=== PATIENT | female | born 1990 | race Caucasian/White ===

== ENCOUNTER 2018-01-28 06:06 | Observation (INO) ==
[~2018-01-28 06:06] MED LIST: ceFAZolin 1,000 MG VIAL ONE; ceFAZolin 1,000 MG in SYRINGE 1 EACH IV ONE
[2018-01-28] MEDS ORDERED: LACTATED RINGERS 1,000 ML IV SCH ×2 (07:00→10:30)
[2018-01-28] MEDS ORDERED: LIDOCAINE 1%/EPI INJ 20 ML VIAL ONE (07:49)
[2018-01-28] MEDS ORDERED: BUPIVACAINE MPF 0.25% /EPI 30 ML VIAL ONE (07:49)
[2018-01-28] MEDS ORDERED: TISSUE ADHESIVE 1 EACH APPLICATOR TOP ONE (09:32)
[2018-01-28 10:20] LABS: Apearance,Urine CLEAR (Clear); Bacteria,Urine Occasional /HPF (Few); Bilirubin,Urine Negative (Negative); Blood, Urine Negative (Negative); Glucose,Urine (UA) Negative (Negative); Ketones,Urine Negative (Negative); Mucus,Urine Occasional /LPF (Occasional); Nitrite,Urine Negative (Negative); Protein,Urine Negative; RBC,Urine 1 /HPF (0-4); Squamous Epithelial Cell,Urine Occasional /HPF (0-10); Urine Color Yellow (Yellow); Urine Specific Gravity 1.014 (1.001-1.035); Urine Urobilinogen < 2.0 EU/DL (0.2-1.0)
[2018-01-28] MEDS ORDERED: PROPOFOL 200 MG/20 ML VIAL IV ONE (10:21)
[2018-01-28] MEDS ORDERED: ACETAMINOPHEN 1,000 MG/100 ML VIAL IV ONE (10:22)
[2018-01-28] MEDS ORDERED: ROCURONIUM 100 MG/10 ML VIAL IV ONE (10:22)
[2018-01-28] MEDS ORDERED: SCOPOLAMINE 1.5 MG PATCH TRANSDERM ONE (10:22)
[2018-01-28] MEDS ORDERED: MIDAZOLAM 2 MG/2 ML VIAL ONE (10:22)
[2018-01-28] MEDS ORDERED: fentaNYL 100 MCG/2 ML VIAL ONE ×2 (10:22)
[2018-01-28] MEDS ORDERED: GLYCOPYRROLATE 0.4 MG/2 ML VIAL ONE (10:23)
[2018-01-28] MEDS ORDERED: NEOSTIGMINE 10 MG/10 ML VIAL ONE (10:23)
[2018-01-28] MEDS ORDERED: PHENYLEPHRINE 1 MG/10 ML SYRINGE IV ONE (10:23)
[2018-01-28] MEDS ORDERED: SEVOFLURANE 1 UNIT/15 MINUTE INH ONE (10:24)
[2018-01-28] MEDS ORDERED: ONDANSETRON 4 MG/2 ML VIAL ONE ×2 (10:24→10:33)
[2018-01-28] MEDS ORDERED: SODIUM CHLORIDE 0.9% 1,000 ML IV ONE (10:24)
[2018-01-28] MEDS ORDERED: LACTATED RINGERS 1,000 ML IV ONE (10:24)
[2018-01-28] MEDS ORDERED: DEXAMETHASONE 10 MG/1 ML VIAL ONE (10:24)
[2018-01-28] MEDS ORDERED: HYDROmorphone 2 MG/1 ML VIAL IV PRN (10:27)
[2018-01-28] MEDS ORDERED: ONDANSETRON 4 MG/2 ML VIAL IV PRN ×2 (10:27→11:14)
[2018-01-28] MEDS ORDERED: MORPHINE 10 MG/1 ML VIAL ONE (10:33)
[2018-01-28] MEDS: MORPHINE 10 MG/1 ML VIAL IV PRN ×3 (10:38→10:51)
[2018-01-28] MEDS ORDERED: MORPHINE 4 MG/1 ML VIAL IV PRN (11:14)
[2018-01-28] MEDS ORDERED: PROMETHAZINE 25 MG/1 ML VIAL IM PRN (11:14)
[2018-01-28] MEDS: PANTOPRAZOLE 40 MG VIAL IV SCH (11:28)
[2018-01-28] MEDS: KETOROLAC 30 MG/1 ML VIAL IV SCH ×3 (11:29→23:14)
[2018-01-28 11:43] LABS: Basophils % 0.1 % (0.0-0.8); Hematocrit 26.2 VOL% (35.7-47.0); Hemoglobin 8.9 GM/DL (12.0-16.0); Immature Granulocytes % 0.5 %; Immature Granulocytes Absolute 0.05 #; Lymphocytes # 0.4 10*3/uL (1.4-4.0); Lymphocytes % 3.7 % (21.3-54.2); Mean Corpuscular Hemoglobin 28 PG (27-34); Mean Corpuscular Volume 82.4 FL (87-102); Mean Platelet Volume 9.3 FL (9.6-12.0); Monocytes # 0.1 10*3/uL (0.11-0.8); Monocytes % 0.7 % (1.7-12.7); Neutrophils # 9.3 10*3/uL (1.4-7.4); Platelet Count 227 T/CUMM (130-400); Red Blood Count 3.18 MC/CUMM (3.8-5.5); Red Cell Distribution Width 12.9 % (9.3-17.3); White Blood Count 9.8 T/CUMM (4-12)
[2018-01-28 12:02] LABS: Band Neutrophils 5 % (0-10); Lymphocytes 2 % (20-55); Microcytosis 1+; Segmented Neutrophils 92 % (50-85); Total Cells Counted 100
[2018-01-28 12:03] LABS: Hypochromasia 1+
[2018-01-28 12:17] LABS: Calcium 6.8 MG/DL (8.5-10.1); Osmolality,Calculated 271.5 MOS/KG (273-304)
[2018-01-28] MEDS: LACTATED RINGERS 1,000 ML IV SCH ×2 (15:03→23:14)
[2018-01-29] MEDS: KETOROLAC 30 MG/1 ML VIAL IV SCH ×3 (05:22→17:03)
[2018-01-29 05:47] LABS: Eosinophils % 0.1 % (0.00-10.9); Hematocrit 28.4 VOL% (35.7-47.0); Hemoglobin 9.6 GM/DL (12.0-16.0); Immature Granulocytes % 0.4 %; Immature Granulocytes Absolute 0.04 #; Lymphocytes # 1.4 10*3/uL (1.4-4.0); Lymphocytes % 14.3 % (21.3-54.2); Mean Corpuscular HGB Conc 33.8 GM/DL (32-36); Mean Corpuscular Hemoglobin 28 PG (27-34); Mean Corpuscular Volume 81.6 FL (87-102); Mean Platelet Volume 9.9 FL (9.6-12.0); Monocytes % 10.6 % (1.7-12.7); Neutrophils # 7.2 10*3/uL (1.4-7.4); Neutrophils % 74.6 % (38.7-73.9); Platelet Count 293 T/CUMM (130-400); Red Blood Count 3.48 MC/CUMM (3.8-5.5); Red Cell Distribution Width 13.2 % (9.3-17.3); White Blood Count 9.6 T/CUMM (4-12)
[2018-01-29] MEDS: LACTATED RINGERS 1,000 ML IV SCH (07:56)
[2018-01-29] MEDS ORDERED: NORETHINDRONE ETHINYL ESTRAD PO SCH (09:00)
[2018-01-29] MEDS: SERTRALINE 50 MG TABLET PO SCH (09:22)
[2018-01-29] MEDS: PANTOPRAZOLE 40 MG VIAL IV SCH (09:23)
[2018-01-29] MEDS: ENOXAPARIN 40 MG/0.4 ML SYRINGE SUBCUT SCH (09:25)
[2018-01-30] MEDS: KETOROLAC 30 MG/1 ML VIAL IV SCH ×3 (00:02→11:43)
[2018-01-30] MEDS: ENOXAPARIN 40 MG/0.4 ML SYRINGE SUBCUT SCH (09:18)
[2018-01-30] MEDS: SERTRALINE 50 MG TABLET PO SCH (09:19)
[2018-01-30] MEDS: PANTOPRAZOLE 40 MG VIAL IV SCH (09:21)
[2018-01-30 11:59] VITALS: BP 118/76
== END 2018-01-30 12:45 | disposition home or self-care (01) ==
LOC: N.OR 06:06 → N.2E 06:06 → N.SDSINP 06:09 → N.2E 11:14
PROVIDERS: ADMIT Surgery; ATTEND Surgery

== ENCOUNTER 2018-02-06 13:45 | Inpatient (IN) ==
[2018-02-06] MEDS ORDERED: MORPHINE 4 MG/1 ML VIAL IV PRN (14:00)
[2018-02-06] MEDS ORDERED: PROMETHAZINE 25 MG/1 ML VIAL IM PRN (14:00)
[2018-02-06] MEDS ORDERED: ONDANSETRON 4 MG/2 ML VIAL IV PRN (14:00)
[2018-02-06] MEDS ORDERED: ASPIRIN 325 MG TABLET PO SCH (14:58)
[2018-02-06] MEDS ORDERED: cefTRIAXone 2,000 MG in SYRINGE 1 EACH IV ONE (15:30)
[2018-02-06] MEDS ORDERED: VANCOMYCIN INJ 1,250 MG in SODIUM CHLORIDE 0.9% 250 ML IV ONE (16:00)
[2018-02-06] MEDS: LACTATED RINGERS 1,000 ML IV SCH (19:12)
[2018-02-06] MEDS: ASPIRIN 325 MG TABLET PO SCH (19:12)
[2018-02-06] MEDS: cefTRIAXone 2,000 MG in SYRINGE 1 EACH IV SCH ×2 (20:03→20:04)
[2018-02-06] MEDS: diphenhydrAMINE 50 MG/1 ML VIAL IV PRN (20:41)
[2018-02-06] MEDS ORDERED: ENOXAPARIN 40 MG/0.4 ML SYRINGE SUBCUT SCH (21:00)
[2018-02-07] MEDS: LACTATED RINGERS 1,000 ML IV SCH ×3 (01:11→15:21)
[2018-02-07] MEDS: VANCOMYCIN INJ 1,250 MG in SODIUM CHLORIDE 0.9% 250 ML IV SCH ×2 (01:51→08:59)
[2018-02-07] MEDS: diphenhydrAMINE 50 MG/1 ML VIAL IV PRN ×2 (01:53→08:59)
[2018-02-07] MEDS: cefTRIAXone 2,000 MG in SYRINGE 1 EACH IV SCH ×2 (03:21→15:22)
[2018-02-07 06:58] LABS: Basophils # 0.1 10*3/uL (0.0-0.2); Basophils % 1.1 % (0.0-0.8); Eosinophils # 0.2 10*3/uL (0.0-0.87); Eosinophils % 3.2 % (0.00-10.9); Hemoglobin 9.5 GM/DL (12.0-16.0); Immature Granulocytes % 0.5 %; Immature Granulocytes Absolute 0.03 #; Lymphocytes # 1.2 10*3/uL (1.4-4.0); Lymphocytes % 21.7 % (21.3-54.2); Mean Corpuscular HGB Conc 32.8 GM/DL (32-36); Mean Corpuscular Hemoglobin 27 PG (27-34); Mean Corpuscular Volume 82.2 FL (87-102); Mean Platelet Volume 8.6 FL (9.6-12.0); Monocytes # 0.9 10*3/uL (0.11-0.8); Monocytes % 16.5 % (1.7-12.7); NRBC # 0.03 10*3/uL; Neutrophils # 3.2 10*3/uL (1.4-7.4); Red Blood Count 3.53 MC/CUMM (3.8-5.5); Red Cell Distribution Width 13.1 % (9.3-17.3); White Blood Count 5.7 T/CUMM (4-12)
[2018-02-07 07:03] LABS: Platelet Count 1190 T/CUMM (130-400)
[2018-02-07 07:19] LABS: Band Neutrophils 1 % (0-10); Eosinophils 5 % (0-10); Lymphocytes 32 % (20-55); Platelet Estimate Increased; Segmented Neutrophils 53 % (50-85); Total Cells Counted 100
[2018-02-07 07:20] LABS: Burr Cells Few
[2018-02-07 07:23] LABS: Calcium 8.3 MG/DL (8.5-10.1); Osmolality,Calculated 276.3 MOS/KG (273-304); Potassium 3.8 MMOL/L (3.5-5.1)
[2018-02-07] MEDS ORDERED: ACETAMINOPHEN 325 MG TABLET PO PRN (07:30)
[2018-02-07] MEDS: ASPIRIN 325 MG TABLET PO SCH (08:59)
[2018-02-07] MEDS ORDERED: SERTRALINE 50 MG TABLET PO SCH (09:00)
[2018-02-07] MEDS ORDERED: NORETHINDRONE ETHINYL ESTRAD PO SCH (09:00)
[2018-02-07] MEDS ORDERED: PANTOPRAZOLE 40 MG TABLET PO SCH (09:00)
[2018-02-07 11:17] VITALS: BP 114/64
== END 2018-02-07 16:18 | disposition home or self-care (01) | DRG 864 ==
LOC: N.3E 13:47
PROVIDERS: ADMIT Surgery; ATTEND Surgery